=== PATIENT | female | born 1960 | race Caucasian/White ===

== ENCOUNTER 2022-06-07 06:44 | Outpatient (CLI) | payer BC ==
[2022-06-06 09:35] VITALS: BMI 35.6
[2022-06-07 07:33] VITALS: BP 156/90; TEMP 97.4
[2022-06-07] MEDS ORDERED: Ondansetron PF 4 MG/2 ML Vial ONE (08:52)
[2022-06-07] MEDS ORDERED: Ondansetron ODT 4 MG TAB ONE (08:53)
[2022-06-07] MEDS ORDERED: Iopamidol-M 200 41% 20 ML VIAL ONE (14:59)
== END 2022-06-07 09:05 | disposition home or self-care (01) ==
LOC: RAD 06:44
PROVIDERS: ATTEND Neurological Surgery
DX: M48.062 Spinal stenosis, lumbar region with neurogenic claudication (principal); M47.815 Spondylosis without myelopathy or radiculopathy, thoracolumbar region; M47.816 Spondylosis without myelopathy or radiculopathy, lumbar region; M47.817 Spondylosis without myelopathy or radiculopathy, lumbosacral region; Z98.1 Arthrodesis status; Z98.890 Other specified postprocedural states
CPT/HCPCS: 62304; 72132; J2405; Q0162; Q9966

== ENCOUNTER 2022-07-11 14:30 | Inpatient (IN) | payer BC ==
[2022-07-12 15:26] VITALS: BMI 35.1
[2022-07-16 09:56] LABS: SARS-CoV-2 NAA Rapid Test Not Detected (NotDetected)
[2022-07-16] MEDS ORDERED: fentaNYL Citrate/PF 100 MCG/2 ML SYRINGE ONE (10:48)
[2022-07-16] MEDS ORDERED: Ketamine 50 MG/ML (10ML VIAL) ONE (10:48)
[2022-07-16] MEDS ORDERED: Famotidine/PF 20 mg/2ml Vial ONE (10:48)
[2022-07-16] MEDS ORDERED: Midazolam HCl 2 mg/2 ml Vial ONE (10:48)
[2022-07-16] MEDS ORDERED: CEFAZOLIN 2 GM VIAL ONE (11:01)
[2022-07-16] MEDS ORDERED: Sodium Chloride 0.9% 100 ML ONE (11:01)
[2022-07-16] MEDS ORDERED: Rocuronium Bromide 10 MG/ML (10ML VIAL) ONE (11:13)
[2022-07-16] MEDS ORDERED: Glycopyrrolate 0.2 MG/ML 5 ML SYRINGE ONE (11:13)
[2022-07-16] MEDS ORDERED: PHENYLEPHRINE-NS 100 MCG/ML 10 ML SYRINGE ONE (11:13)
[2022-07-16] MEDS ORDERED: PROPOFOL 200 MG/20 ML VIAL ONE (11:13)
[2022-07-16] MEDS ORDERED: Ondansetron PF 4 MG/2 ML Vial ONE (11:13)
[2022-07-16] MEDS ORDERED: Metoclopramide HCl 10 MG/2 ML VIAL ONE (11:13)
[2022-07-16] MEDS ORDERED: Dexamethasone 20 MG/5 ML VIAL ONE (11:13)
[2022-07-16] MEDS ORDERED: Mag-Al 1200 mg/1200 mg/30 ML UDCUP PO PRN (11:16)
[2022-07-16] MEDS ORDERED: Cyclobenzaprine 10 MG TAB PO PRN (11:16)
[2022-07-16] MEDS ORDERED: Milk Of Magnesia 30 ML UDCUP PO PRN (11:16)
[2022-07-16] MEDS ORDERED: Acetaminophen/Codeine 30-300mg Tablet PO PRN (11:16)
[2022-07-16] MEDS ORDERED: Ondansetron PF 4 MG/2 ML Vial IVP PRN (11:16)
[2022-07-16] MEDS ORDERED: traMADol HCl 50 MG TAB PO PRN (11:16)
[2022-07-16] MEDS ORDERED: diphenhydrAMINE 25 MG CAP PO PRN (11:16)
[2022-07-16] MEDS ORDERED: Promethazine 25 MG TAB PO PRN (11:16)
[2022-07-16] MEDS ORDERED: SUGAMMADEX SODIUM 200 MG/2 ML VIAL ONE (11:34)
[2022-07-16] MEDS ORDERED: Morphine 4 MG/ML VIAL SLOW IVP PRN (12:09)
[2022-07-16] MEDS ORDERED: HYDROmorphone 2 MG/ML VIAL SLOW IVP PRN (12:12)
[2022-07-16] MEDS ORDERED: Promethazine HCl 25 MG/ML VIAL IVPB PRN (12:12)
[2022-07-16] MEDS ORDERED: Ondansetron HCl/PF 4 MG/2 ML Vial IVP PRN (12:12)
[2022-07-16] MEDS ORDERED: Meperidine HCl/PF 25 MG/ML VIAL SLOW IVP PRN (12:12)
[2022-07-16] MEDS ORDERED: Promethazine HCl 25 MG/ML VIAL IM PRN (12:12)
[2022-07-16] MEDS ORDERED: Fentanyl 100 MCG/2 ML VIAL ONE ×3 (12:52→14:36)
[2022-07-16] MEDS ORDERED: HYDROmorphone 2 MG/ML VIAL ONE (13:28)
[2022-07-16] MEDS ORDERED: FLU VACC QS2022-23(6MOS UP)/PF 60 MCG/0.5 ML SYRINGE IM ONE (15:45)
[2022-07-16] MEDS: Acetaminophen/Codeine 30-300mg Tablet PO PRN ×2 (16:05→20:23)
[2022-07-16] MEDS: Sodium Chloride 0.9% 1,000 ML IV SCH (16:07)
[2022-07-16] MEDS: CEFAZOLIN 2 GM in Sodium Chloride 0.9% 100 ML IVPB SCH (18:43)
[2022-07-17] MEDS: Sodium Chloride 0.9% 1,000 ML IV SCH (01:28)
[2022-07-17] MEDS: CEFAZOLIN 2 GM in Sodium Chloride 0.9% 100 ML IVPB SCH (03:31)
[2022-07-17] MEDS: Acetaminophen/Codeine 30-300mg Tablet PO PRN ×2 (03:33→09:53)
[2022-07-17 08:41] VITALS: BP 115/68
[2022-07-17 08:47] VITALS: TEMP 97.8
[2022-07-17] MEDS ORDERED: Losartan 25 MG TAB PO SCH (09:00)
== END 2022-07-17 10:30 | disposition home or self-care (01) | DRG 460 ==
LOC: SURG A 07-16 08:04 → SJJU 07-16 14:56
PROVIDERS: ADMIT Neurological Surgery; ATTEND Neurological Surgery
PROC: 0SG00K1 Fusion of Lumbar Vertebral Joint with Nonautologous Tissue Substitute, Posterior Approach, Posterior Column, Open Approach (ICD-10-PCS; principal; 2022-07-16)
PROC: 00NY0ZZ Release Lumbar Spinal Cord, Open Approach (ICD-10-PCS; 2022-07-16)
PROC: 0QP004Z Removal of Internal Fixation Device from Lumbar Vertebra, Open Approach (ICD-10-PCS; 2022-07-16)
PROC: 3E0U0GB Introduction of Recombinant Bone Morphogenetic Protein into Joints, Open Approach (ICD-10-PCS; 2022-07-16)
DX: T84.85 Stenosis due to internal orthopedic prosthetic devices, implants and grafts (principal); M51.36 Other intervertebral disc degeneration, lumbar region; M48.061 Spinal stenosis, lumbar region without neurogenic claudication; Z20.822 Contact with and (suspected) exposure to COVID-19; Y84.8 Other medical procedures as the cause of abnormal reaction of the patient, or of later complication, without mention of misadventure at the time of the procedure
CPT/HCPCS: C1713; C1768; C1776; J1100; J1170; J2250; J2405; J2704; J2765; J3010; J3370; J3490; J7050; S0028; U0002

== ENCOUNTER 2022-07-11 14:40 | Outpatient (CLI) | payer BC ==
[2022-07-11 15:15] LABS: Hemoglobin 13.1 g/dL (12.0-15.5); Mean Corpuscular HGB CONC 34.1 g/dL (32.0-36.0); Mean Corpuscular Hemoglobin 31.5 pg (27.0-33.0); Mean Corpuscular Volume 92.3 fl (81.6-98.3); Mean Platelet Volume 8.8 fl (7.4-10.4); Platelet Count 316 10x3/uL (150-450); RBC Distribution Width 13.1 % (11.5-14.5); Red Blood Cell (RBC) Count 4.16 10x6/uL (3.90-5.03); White Blood Cell (WBC) Count 8.6 10x3/uL (3.5-10.5)
[2022-07-11 15:37] LABS: Anion Gap 14 mmol/L (10-20); BUN (Urea Nitrogen) 12 mg/dL (9.8-20.1); Calc. Creatinine Clearance 0 mL/min (70-130); Calcium 9.9 mg/dL (7.8-10.44); Carbon Dioxide 26 mmol/L (22-29); Chloride 105 mmol/L (98-107); Estimated GFR 80; Glucose 106 mg/dL (70-105); Potassium 4.1 mmol/L (3.5-5.1); Sodium 141 mmol/L (136-145)
== END 2022-07-11 14:41 | disposition home or self-care (01) ==
LOC: LABBT 14:40
PROVIDERS: ATTEND Neurological Surgery
DX: Z01.818 Encounter for other preprocedural examination (principal); M43.16 Spondylolisthesis, lumbar region
CPT/HCPCS: 80048; 85027; 93005; 93010

== ENCOUNTER 2022-08-01 08:59 | Outpatient (CLI) | payer BC | END 2022-08-01 09:00 | disposition home or self-care (01) | LOC: TBSIIMAG 08:59 | PROVIDERS: ATTEND Neurological Surgery | DX: M43.16 Spondylolisthesis, lumbar region (principal); M47.816 Spondylosis without myelopathy or radiculopathy, lumbar region; Z98.890 Other specified postprocedural states | CPT/HCPCS: 72100 ==